=== PATIENT | male | born 1970 | race African-American/Black ===

== ENCOUNTER 2017-05-11 14:39 | Emergency (ER) | payer OTHER ==
[2017-05-11 15:00] VITALS: BMI 24.4
--- NOTE | 2017-05-11 15:14 | PDOC ---
History of Present Illness - General Chief Complaint: Weakness Stated Complaint: ALLERGIC REACTION Time Seen by Provider: 05/11/17 15:03 History Source: Patient Exam Limitations: No Limitations - History of Present Illness Initial Comments: 05/11/17 15:15 46-year-old male renee with no medical history presents to the emergency department after having a panic attack. 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 Patient thinks he is ALLERGIC to chocolate from when he was a child and started hyperventilating. Patient denies any headache, dizziness, lightheadedness, tongue swelling, difficulty swallowing, neck pains, chest pain, shortness of breath, skin rash, abdominal pains, Chip numbness or tingling sensation. Patient states upon arrival to the emergency department, he felt completely fine. Patient states he was given IV Benadryl while in the ambulance but states he felt better even before the Benadryl. Timing/Duration: 1 hour Past History - Past Medical History Allergies/Adverse Reactions: Allergies Allergy/AdvReac Type Severity Reaction Status Date / Time No Known Allergies Allergy Verified 05/11/17 16:53 COPD: No Other medical history: DENIES MEDICAL HX - Surgical History Abdominal Surgery: Yes (HERNIA REPAIR) Appendectomy: Yes - Suicide/Smoking/Psychosocial Hx Smoking History: Never smoked Review of Systems - Review of Systems Able to Perform ROS?: Yes Comments:: 05/11/17 15:13 CONSTITUTIONAL: Absent: fever, chills, diaphoresis, generalized weakness, malaise, loss of appetite HEENT: Absent: rhinorrhea, nasal congestion, throat pain, throat swelling, difficulty swallowing, mouth swelling, ear pain, eye pain, visual Changes CARDIOVASCULAR: Absent: chest pain, loss of consciousness, palpitations, irregular heart rate, peripheral edema RESPIRATORY: Absent: cough, shortness of breath, dyspnea with exertion, orthopnea, wheezing, stridor, hemoptysis GASTROINTESTINAL: Absent: abdominal pain, abdominal distension, nausea, vomiting, diarrhea, constipation, melena, hematochezia GENITOURINARY: Absent: dysuria, frequency, urgency, hesitancy, hematuria, flank pain, genital pain MUSCULOSKELETAL: Absent: myalgia, arthralgia, joint swelling SKIN: Absent: rash, itching, pallor HEMATOLOGIC/IMMUNOLOGIC: Absent: easy bleeding, easy bruising, lymphadenopathy, frequent infections ENDOCRINE: Absent: unexplained weight gain, unexplained weight loss, heat intolerance, cold intolerance NEUROLOGIC: Absent: headache, focal weakness or paresthesias, dizziness, unsteady gait, seizure, mental status changes, bladder or bowel incontinence PSYCHIATRIC: Absent: anxiety, depression, suicidal or homicidal ideation, hallucinations. Is the patient limited Bulgarian proficient: No *Physical Exam - Vital Signs Last Vital Signs Temp Pulse Resp BP Pulse Ox 98.2 F 83 16 151/92 100 05/11/17 14:40 05/11/17 14:40 05/11/17 14:40 05/11/17 14:40 05/11/17 14:40 - Physical Exam Comments: 05/11/17 15:14 GENERAL: Well developed, well nourished. Awake and alert. No acute distress. HEENT: Normocephalic, atraumatic. PERRLA, EOMI. No conjunctival pallor. Sclera are non- icteric. Moist mucous membranes. Oropharynx is clear. NECK: Supple. Full ROM. No JVD. Carotid pulses 2+ and symmetric, without bruits. No thyromegaly. No lymphadenopathy. CARDIOVASCULAR: Regular rate and rhythm. No murmurs, rubs, or gallops. Distal pulses are 2+ and symmetric. PULMONARY: No evidence of respiratory distress. Lungs clear to auscultation bilaterally. No wheezing, rales or rhonchi. ABDOMINAL: Soft. Non-tender. Non-distended. No rebound or guarding. No organomegaly. Normoactive bowel sounds. MUSCULOSKELETAL Normal range of motion at all joints. No bony deformities or tenderness. No CVA tenderness. EXTREMITIES: No cyanosis. No clubbing. No edema. No calf tenderness. SKIN: Warm and dry. Normal capillary refill. No rashes. No jaundice. NEUROLOGICAL: Alert, awake, appropriate. Cranial nerves 2-12 intact. No deficits to light touch and temperature in face, upper extremities and lower extremities. No motor deficits in the in face, upper extremities and lower extremities. Normoreflexic in the upper and lower extremities. Normal speech. Toes are down- going bilaterally. Gait is normal without ataxia. PSYCHIATRIC: Cooperative. Good eye contact. Appropriate mood and affect. *DC/Admit/Observation/Transfer Diagnosis at time of Disposition: Panic attack - Discharge Dispostion Disposition: HOME Condition at time of disposition: Stable Admit: No - Referrals Referrals: Keny Garcia [Primary Care Provider] - - Patient Instructions Printed Discharge Instructions: DI for Panic Disorder Additional Instructions: Rest Follow up with your physician in 48 hours Return to the ER for severe/persistent/worsening symptoms - Post Discharge Activity Forms/Work/School Notes: Back to Work
[2017-05-11] MEDS ORDERED: SODIUM CHLORIDE 1,000 ML IV STA (16:55)
[2017-05-11 17:05] VITALS: BP 136/89; PULSE 79; TEMP 98.3
== END 2017-05-11 17:12 | disposition home or self-care (01) ==
LOC: JER 14:39
DX: F41.0 Panic disorder [episodic paroxysmal anxiety] (principal)
CPT/HCPCS: 99283-25

== ENCOUNTER 2021-12-13 10:42 | Emergency (ER) | payer OTHER ==
[2021-12-13 11:04] VITALS: BMI 25.1
[2021-12-13] MEDS ORDERED: ACETAMINOPHEN 1000 MG/100 ML BAG IVPB ONE (11:43)
[2021-12-13] MEDS ORDERED: SODIUM CHLORIDE 0.9% 500 ML INFUS.BAG IV ONE (11:43)
[2021-12-13] MEDS ORDERED: ACETAMINOPHEN INJECTION 100 ML IVPB ONE (12:39)
[2021-12-13 13:57] VITALS: BP 123/71; PULSE 103; RESP 20; TEMP 101.3
== END 2021-12-13 15:26 | disposition home or self-care (01) ==
LOC: JER 10:42
PROC: 3E033GC Introduction of Other Therapeutic Substance into Peripheral Vein, Percutaneous Approach (ICD-10-PCS; principal; 2021-12-13)
DX: U07.1 COVID-19 (principal)
CPT/HCPCS: 0241U-QW; 99284-25